=== PATIENT | female | born 1960 | race Caucasian/White ===

== ENCOUNTER 2019-10-19 15:53 | Emergency (ER) | payer SELFPAY ==
[~2019-10-19] VITALS: Ht 162.6 cm; Wt 76.7 kg
[2019-10-19 16:03] VITALS: BP 193/102
[2019-10-19] MEDS ORDERED: PROMETHAZINE 25 MG/ML VIAL IM ONE (16:35)
[2019-10-19] MEDS ORDERED: MORPHINE SULFATE 4 MG/ML SYR IM ONE (16:35)
[2019-10-19] MEDS ORDERED: cloNIDine 0.1 MG TAB PO ONE (16:35)
[2019-10-19 18:14] VITALS: BP 141/70
== END 2019-10-19 18:14 | disposition home or self-care (01) ==
LOC: MED 15:53
DX: G43.909 Migraine, unspecified, not intractable, without status migrainosus (principal); R11.2 Nausea with vomiting, unspecified; I10 Essential (primary) hypertension
CPT/HCPCS: 70450; 96372; 99284; J2270; J2550